=== PATIENT | male | born 1960 | race Hispanic/Latino ===

== ENCOUNTER 2017-01-27 09:04 | Emergency (ER) | payer BC, OTHER ==
[2017-01-27] MEDS ORDERED: Proparacaine 0.5% Opth 15 ML BOT ONE (09:19)
[2017-01-27] MEDS ORDERED: Fluorescein Opthalmic Strip ONE (09:19)
== END 2017-01-27 10:20 | disposition home or self-care (01) ==
LOC: ERS 09:04
DX: S05.02XA Injury of conjunctiva and corneal abrasion without foreign body, left eye, initial encounter (principal); X58.XXXA Exposure to other specified factors, initial encounter
CPT/HCPCS: 99283

== ENCOUNTER 2017-09-22 09:48 | Outpatient (CLI) | payer BC ==
--- NOTE | 2017-09-22 14:46 | MRI ---
MRI LEFT SHOULDER PERFORMED WITHOUT CONTRAST ENHANCEMENT: Date: 09/22/17 HISTORY: Left shoulder pain. Patient cannot abduct arm. FINDINGS: There are some moderate AC joint degenerative changes seen with some marrow edema change involving th e acromion and deformity to the distal end of the clavicle. There is a massive rotator cuff tear. This involves the entirety of the supraspinatus tendon and the majority of the infraspinatus tendon. Tendon is retracted by 4.5 cm AP dimension and the tear is grea ter than 4.0 cm. There is also a partial tear involving the more superior fibers of the subscapularis tendon. The residual fibers are very thin and some of the more inferior fibers still appear to be in tact. The biceps tendon does maintain a normal position within the bicipital groove. There is a joint effusion present. There is fraying of the posterior superior labrum. There is some mild supraspinatus atrophy. There is more severe infraspinatus muscle atrophy. Also not ed is marked atrophy of the teres minor muscle. IMPRESSION: Massive rotator cuff tear. This involves the entirety of the supra, as well as a majority of the infr aspinatus tendon, and also includes a moderately high grade tear of the superior fibers of the subsca pularis tendon. There is associated moderate atrophy of the infraspinatus muscle, some mild atrophy o f the subscapularis muscle. Incidental note is made of marked atrophy of the teres minor muscle. POS: [facility]
== END 2017-09-22 09:49 | disposition home or self-care (01) ==
LOC: TBSIIMAG 09:48
PROVIDERS: ATTEND Orthopaedic Surgery
DX: M75.42 Impingement syndrome of left shoulder (principal); M25.512 Pain in left shoulder; M75.102 Unspecified rotator cuff tear or rupture of left shoulder, not specified as traumatic; M62.512 Muscle wasting and atrophy, not elsewhere classified, left shoulder

== ENCOUNTER 2018-12-30 11:42 | Outpatient (CLI) | payer BC ==
--- NOTE | 2018-12-30 12:52 | RAD ---
LEFT RIB SERIES: HISTORY: Rib pain on the left side. FINDINGS: Four views of the left ribs show no evidence of displaced left rib fracture. No underlying pleural t hickening or pneumothorax are seen. IMPRESSION: No evidence of left rib abnormality. POS: [facility]ET
== END 2018-12-30 11:43 | disposition home or self-care (01) ==
LOC: BICRAD 11:42
PROVIDERS: ATTEND Family Medicine
DX: R07.81 Pleurodynia (principal)

== ENCOUNTER 2020-10-10 | Inpatient (IN) | payer BC | END 2020-10-17 17:55 | disposition home or self-care (01) | DRG 177 | PROVIDERS: ADMIT Internal Medicine | PROC: 8E0ZXY6 Isolation (ICD-10-PCS; 2020-10-10) | PROC: XW033E5 Introduction of Remdesivir Anti-infective into Peripheral Vein, Percutaneous Approach, New Technology Group 5 (ICD-10-PCS; principal; 2020-10-12) ==

== ENCOUNTER 2020-11-11 12:11 | Outpatient (CLI) | payer BC | END 2020-11-11 12:12 | disposition home or self-care (01) | LOC: BICRAD 12:11 | PROVIDERS: ATTEND Family Medicine | DX: U07.1 COVID-19 (principal); J12.82 Pneumonia due to coronavirus disease 2019 | CPT/HCPCS: 71046 ==